=== PATIENT | male | born 1945 | race Caucasian/White ===

== ENCOUNTER 2021-12-20 09:00 | Outpatient (CLI) | payer OTHER, SELFPAY ==
[2021-12-20 09:10] LABS: Add Urine Microscopic? NO; Charge for UA Resulting for Rev
[2021-12-20 09:50] LABS: Bilirubin Urine Neg (Negative); Blood Urine Neg (Negative); Glucose Urine UA Norm (Normal); Ketones Urine Negative (Negative); Leukocyte Esterase Urine Negative (Negative); Nitrate Urine Negative (Negative); Protein Urine Neg (Negative); Specific Gravity, Urine 1.005 (1.005-1.030); Urine Appearance Clear (CLEAR); Urine Color Yellow (Yellow); Urobilinogen Urine Norm (Negative); pH Urine 7 (5-7)
[2021-12-20 10:14] LABS: Alanine Aminotransferase 14 U/L (0-41); Albumin Level 4.4 g/dL (3.5-5.2); Alkaline Phosphatase 76 U/L (40-130); Anion Gap 14.8 (5-19); Aspartate Amino Transferase 17 U/L (0-40); Blood Urea Nitrogen 26 mg/dL (8-23); Calcium 9.6 mg/dL (8.5-10.5); Carbon Dioxide 30 mmol/L (22-29); Chloride 98 mmol/L (98-107); Globulin 3.1 g/dL (1.3-4.6); Glucose 142 mg/dL (65-115); Osmolality Calculated 295 mOsm/kg (285-295); Potassium 3.8 mmol/L (3.5-5.1); Sodium 139 mmol/L (136-145); Total Bilirubin 0.7 mg/dL (0.15-1.2); Total Protein 7.5 g/dL (6.6-8.7)
== END 2021-12-20 09:01 | disposition home or self-care (01) ==
LOC: LAB 09:04
PROVIDERS: Visit Provider Chiropractor
DX: I10 Essential (primary) hypertension (principal)
CPT/HCPCS: 80053; 81003

== ENCOUNTER 2023-03-12 10:18 | Outpatient (RCR) | payer OTHER, SELFPAY | END 2023-04-05 23:59 | disposition home or self-care (01) | LOC: SPT 10:18 | PROVIDERS: PCP Family Medicine; Visit Provider Family Medicine | DX: M62.012 Separation of muscle (nontraumatic), left shoulder (principal) | CPT/HCPCS: 97110; 97161 ==

== ENCOUNTER 2023-04-06 06:00 | Outpatient (RCR) | payer OTHER, SELFPAY | END 2023-05-06 23:59 | disposition home or self-care (01) | LOC: SPT 06:00 | PROVIDERS: PCP Family Medicine; Visit Provider Family Medicine | DX: M62.012 Separation of muscle (nontraumatic), left shoulder (principal) | CPT/HCPCS: 97033; 97110 ==

== ENCOUNTER 2023-05-01 15:39 | Emergency (ER) | payer OTHER, SELFPAY ==
--- NOTE | 2023-05-01 15:42 | XR_ITS ---
WS: [id number] XR chest 1V portable [id number] REASON FOR EXAM: cp FINDINGS: The heart and the mediastinum are within normal limits. There is calcified granulomatous disease in both hemithoraces. No acute pulmonary parenchymal or pleural abnormality is identified. Old healed rib fractures on the left. Mild degenerative spondylosis in the mid and lower thoracic spi ne. IMPRESSION: No acute or subacute chest abnormality identified.
--- NOTE | 2023-05-01 15:43 | ECG_ITS ---
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 Measurements Intervals [place] Rate: 52 P: 75 MD: 127 QRS: 43 QRSD: 107 T: 67 QT: 460 QTc: 429 Interpretive Statements SINUS BRADYCARDIA No previous ECG available for comparison Electronically Signed On 05-01-2023 21:47:22 ENGINEERING SPECIALIST by Sanchez Franks M.D. [email or web address].[email or web address]/[id number] f
[2023-05-01 15:46] VITALS: BP 142/72; PULSE 52; RESP 16; TEMP 36.5; O2SAT 98
[2023-05-01 16:18] LABS: Basophils % 0.5 %; Eosinophils % 0.6 %; Hematocrit 42.2 % (37-53); Lymphocytes # 1.7 10^3/uL (0.8-4.8); Lymphocytes % 27.1 %; Mean Corpuscular HGB Conc 33.2 g/dL (30-55); Mean Corpuscular Hemoglobin 32.7 pg (27-33); Mean Corpuscular Volume 98.6 fl (82-101); Mean Platelet Volume 9.9 fL (7.4-10.4); Monocytes # 0.6 10^3/uL (0.2-0.9); Monocytes % 10.2 %; Neutrophils # 3.78 10^3/uL (1.8-7.7); Neutrophils % 61.4 %; Nucleated Red Blood Cells % 0 %; Platelet Count 221 10^3/cmm (157-399); Red Blood Count 4.28 10^6/uL (3.85-5.65); Red Cell Distribution Width 12.8 % (12.1-15.1); White Blood Count 6.16 10^3/uL (3.29-11.43)
[2023-05-01 16:21] LABS: Troponin(5th) Baseline 8 ng/L (0-15)
[2023-05-01 16:25] LABS: Alanine Aminotransferase 10 U/L (0-41); Albumin Level 4.5 g/dL (3.5-5.2); Alkaline Phosphatase 87 U/L (40-130); Anion Gap 17.2 (5-19); Aspartate Amino Transferase 18 U/L (0-40); Blood Urea Nitrogen 17 mg/dL (8-23); Carbon Dioxide 27 mmol/L (22-29); Chloride 103 mmol/L (98-107); Globulin 2.6 g/dL (1.3-4.6); Glucose 119 mg/dL (65-115); Osmolality Calculated 299 mOsm/kg (285-295); Potassium 4.2 mmol/L (3.5-5.1); Sodium 143 mmol/L (136-145); Total Bilirubin 0.5 mg/dL (0.15-1.2); Total Protein 7.1 g/dL (6.6-8.7)
--- NOTE | 2023-05-01 16:26 | W.ED.CHESTPA ---
HPI - Chest Pain General: Chief Complaint: Chest Pain Stated Complaint: [facility] sent, chest pain Time Seen by Provider: 05/01/23 16:26 History of Present Illness: 77-year-old male presents to the emerged part with complaints of left shoulder pain and left-sided chest pain. He states he intermittently has a muscle spasm and feels like his body is tensing up for no reason. He states he initially had an accidental fall on 01/28/2023 and has not been feeling very well since he fell. He states he was advised to come to the emergency department by the [facility] clinic. He states that at present he is not having active chest pain. He denies worsening shortness of breath. Review of Systems General: Reports: 10 or more systems reviewed and unremarkable except in HPI and below Card: Reports: chest pain Musc: Reports: extremity pain Physical Exam Narrative: EXAM NARRATIVE: Constitutional: the patient appears well nourished and of normal development. Vital signs as documented. No acute distress at present. Alert and oriented-to person, place, time and situation. Head, eyes, ears, nose, mouth, throat: Normocephalic, atraumatic. Pupils-equal, round, reactive to light. No scleral icterus. Normal-appearing external ears. Normal appearing nasal turbinates, no drainage. No obvious oral lesions, posterior oropharynx without erythema or exudates. Neck: Supple, trachea is midline, no lymphadenopathy, no jugular venous distension, thyromegaly, or carotid bruits. Carotid upstrokes are brisk bilaterally. Lungs: clear to auscultation to all lung jones. Symmetrical rise and fall of chest, no obvious signs of increased work of breathing at present. Cardiac: Regular rate and rhythm, positive S1, S2. No murmurs, rubs or gallops that I can appreciate Abdomen: Soft, non-tender to palpation, normal active bowel sounds to all quadrants. No palpable masses, no organomegaly and abdominal bruits. Extremities: 2+ pulses in the upper extremities that are equal bilaterally, 2+ pulses in the lower extremities that are equal bilaterally. Non-edematous. Moves all extremities well, sensation to all extremities are noted. Skin: Warm, dry, intact. Course Vital Signs: Vital signs: Vital Signs Temperature 97.7 F 05/01/23 18:04 Pulse Rate 57 L 05/01/23 18:04 Respiratory Rate 16 05/01/23 18:04 Blood Pressure 141/77 05/01/23 18:04 Pulse Oximetry 95 05/01/23 18:04 Oxygen Delivery Me thod Room Air 05/01/23 16:34 MDM - Chest Pain Medical Decision Making Physical exam completed and documented, I will obtain serial cardiac enzymes, serial twelve-lead EKGs, chest x-ray, CBC, CMP, urinalysis, BNP, PT/PTT/INR, and a chest x-ray. I provided cardiac dose aspirin if indicated and nitroglycerin administration if indicated. I have reviewed any pervious and pertinent medical records for assist in obtaining beneficial medical information to improved the care and treatment of the patient. Medical Records I reviewed the patient's medical records. Lab Data I reviewed the patient's lab results. 05/01/23 15:56 05/01/23 15:56 Laboratory Results WBC 6.16 10^3/uL (3.29-11.43) 05/01/23 15:56 RBC 4.28 10^6/uL (3.85-5.65) 05/01/23 15:56 Hgb 14.00 g/dL (11.27-16.99) 05/01/23 15:56 Hct 42.2 % (37-53) 05/01/23 15:56 MCV 98.6 fl (82-101) 05/01/23 15:56 MCH 32.7 pg (27-33) 05/01/23 15:56 MCHC 33.2 g/dL (30-55) 05/01/23 15:56 RDW 12.8 % (12.1-15.1) 05/01/23 15:56 Plt Count 221 10^3/cmm (157-399) 05/01/23 15:56 MPV 9.9 fL (7.4-10.4) 05/01/23 15:56 Neut % (Auto) 61.4 % 05/01/23 15:56 Lymph % (Auto) 27.1 % 05/01/23 15:56 [place] % (Auto) 10.2 % 05/01/23 15:56 Eos % (Auto) 0.6 % 05/01/23 15:56 Baso % (Auto) 0.5 % 05/01/23 15:56 Neut # (Auto) 3.78 10^3/uL (1.8-7.7) 05/01/23 15:56 Lymph # (Auto) 1.7 10^3/uL (0.8-4.8) 05/01/23 15:56 [place] # (Auto) 0.6 10^3/uL (0.2-0.9) 05/01/23 15:56 Eos # (Auto) 0.0 10^3/uL (0.0-0.8) 05/01/23 15:56 Baso # (Auto) 0.0 10^3/uL (0.0-0.1) 05/01/23 15:56 Nucleated RBC % (auto) 0 % 05/01/23 15:56 Nucleated RBCs # 0.0 /100WBC 05/01/23 15:56 PT 13.50 SECONDS (12.1-14.9) 05/01/23 15:56 INR 1.00 (0.8-1.2) 05/01/23 15:56 Sodium 143 mmol/L (136-145) 05/01/23 15:56 Potassium 4.2 mmol/L (3.5-5.1) 05/01/23 15:56 Chloride 103 mmol/L (98-107) 05/01/23 15:56 Carbon Dioxide 27 mmol/L (22-29) 05/01/23 15:56 Anion Gap 17.2 (5-19) 05/01/23 15:56 BUN 17 mg/dL (8-23) 05/01/23 15:56 Creatinine 1.3 mg/dL (0.7-1.2) H 05/01/23 15:56 GFR Calculation Not Reportable 05/01/23 15:56 Glucose 119 mg/dL (65-115) H 05/01/23 15:56 Calculated Osmolality 299 mOsm/kg (285-295) H 05/01/23 15:56 Calcium 10.0 mg/dL (8.5-10.5) 05/01/23 15:56 Total Bilirubin 0.5 mg/dL (0.15-1.2) 05/01/23 15:56 AST 18 U/L (0-40) 05/01/23 15:56 ALT 10 U/L (0-41) 05/01/23 15:56 Alkaline Phosphatase 87 U/L (40-130) 05/01/23 15:56 Troponin T Baseline 8 ng/L (0-15) 05/01/23 15:56 Troponin T 120 Minute 6.20 ng/L (0-15) 05/01/23 17:42 Delta Troponin T -1.80 ABS# (0-10) L 05/01/23 17:42 Total Protein 7.1 g/dL (6.6-8.7) 05/01/23 15:56 Albumin 4.5 g/dL (3.5-5.2) 05/01/23 15:56 Globulin 2.6 g/dL (1.3-4.6) 05/01/23 15:56 All radiology interpretation(s) finalized by discharge EKG Data EKG 1: Interpretation: Twelve-lead EKG obtained at 1543 and reviewed at 1545 demonstrates sinus bradycardia with a ventricular rate of 52 bpm, [place] interval 127 QRS 107, QT 460 QTc [address] elevation or depression at present to demonstrate acute ischemia or infarction. Discharge Plan Discharge Patient Disposition: Home Clinical Impression: Atypical chest pain Condition: Stable Prescriptions: New naproxen 500 mg tablet 500 mg PO Q12H PRN (Reason: pain) Qty: 20 0RF Discharge Orders: Discharge ED (Routine); Ordered 05/01/23 Ordered By: Juan Manuel Wharton Referrals: Aleena Azevedo MD [Primary Care Provider] - Discharge Diet: Advance as tolerated Discharge Activity: Resume usual activity Patient Instructions: Opioid Safety, Pain Management Coding Level of Care Code ED Manager Mall for Chg Telma
[2023-05-01 16:34] VITALS: BP 141/77; PULSE 60; RESP 18; O2SAT 96
[2023-05-01 17:05] VITALS: BP 141/77; PULSE 57; RESP 16; O2SAT 95
--- NOTE | 2023-05-01 17:42 | ECG_ITS ---
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 Measurements Intervals [place] Rate: 54 P: 62 AR: 120 QRS: 13 QRSD: 108 T: 57 QT: 471 QTc: 450 Interpretive Statements SINUS BRADYCARDIA Compared to ECG 05/01/2023 15:43:24 No significant changes Electronically Signed On 05-01-2023 21:47:35 CAR WHACKER by Sanchez Franks M.D. [email or web address] linda [email or web address] medical [email or web address]/[id number]
[2023-05-01 18:04] VITALS: BP 141/77; PULSE 57; RESP 16; TEMP 36.5; O2SAT 95
== END 2023-05-01 18:05 | disposition home or self-care (01) ==
PROVIDERS: Emergency Medicine; Emergency Provider Internal Medicine; PCP Family Medicine
DX: R07.89 Other chest pain (principal)
CPT/HCPCS: 36415; 71045; 80053; 84484; 85025; 85610; 93005; 99285

== ENCOUNTER 2023-05-07 06:00 | Outpatient (RCR) | payer OTHER, SELFPAY | END 2023-05-25 23:59 | disposition home or self-care (01) | LOC: SPT 06:00 | PROVIDERS: PCP Family Medicine; Visit Provider Family Medicine | DX: M62.012 Separation of muscle (nontraumatic), left shoulder (principal) | CPT/HCPCS: 97033; 97110 ==

== ENCOUNTER 2023-07-31 10:12 | Observation (INO) | payer OTHER, SELFPAY ==
[2023-07-31] VITALS (10 sets, daily range): BP systolic 90–130; BP diastolic 55–81; PULSE 48–90; RESP 14–16; TEMP 36.7–37.1; O2SAT 93–96; BMI 27.6
--- NOTE | 2023-07-31 10:17 | CT_ITS ---
WS: [id number] CT HEAD NONCONTRAST HISTORY: Dizziness TECHNIQUE: Contiguous axial imaging performed through the brain in 2.5 mm imaging. Bone and soft tiss ue windows. Sagittal and coronal reformats reviewed. All CT scans at [facility] use at least one of these dose optimization techniques: automated exposure control; mA and/or kV adjustment per pa tient size (includes targeted exams where dose is matched to clinical indication); or iterative recon struction. DLP: 1071.90 mGy.cm COMPARISON: None available. No acute intracranial hemorrhage, midline shift or mass effect. Mild atrophy and small vessel ischemic disease. Ventricles: Normal size with no hydrocephalus. No inferior displacement the cerebellar tonsils. Paranasal sinuses: Inspissated material within the LEFT maxillary sinus. Mastoid air cells: Well pneumatized. Calvarium and scalp: Skull is intact with no soft tissue edema or swelling. IMPRESSION: 1. No acute intracranial hemorrhage or edema. 2. Mild atrophy and mild small vessel disease. No prior infarct.
--- NOTE | 2023-07-31 10:17 | XRR_ITS ---
PROCEDURE INFORMATION: Exam: XR Chest Exam date and time: 07/31/2023 10:51 AM Age: 78 years old Clinical indication: Patient HX: PT arrives pov with chief complaint of dizziness since Thursday. PT states [facility] and told to come to er TECHNIQUE: Imaging protocol: Radiologic exam of the chest. Views: 1 view. COMPARISON: CR XR chest 1V portable [id number] 05/01/2023 4:14 PM FINDINGS: Lungs: There is a pleural-based opacity along the left lung convexity. Pleural spaces: Unremarkable. No pleural effusion. No pneumothorax. Heart/Mediastinum: Unremarkable. No cardiomegaly. Bones/joints: Unremarkable. XR/XR chest 1V [id number] IMPRESSION: Peripheral opacity along the left mid convexity. Recommend follow up with chest radiograph after presumptive therapy to document resolution.
--- NOTE | 2023-07-31 10:18 | ECG_ITS ---
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 Measurements Intervals [place] Rate: 50 P: 74 [place]: 149 QRS: 66 QRSD: 105 T: 64 QT: 470 QTc: 431 Interpretive Statements SINUS BRADYCARDIA Prominent R wave in lead V1-consider posterior wall MA/RVH MINIMAL ST DEPRESSION [0.025+ mV ST DEPRESSION] Compared to ECG 05/01/2023 17:44:23 ST (T wave) deviation now present Electronically Signed On 08-01-2023 19:25:39 CDT by Mary Vargas M.D. [email or web address] Company Limitedlima city [facility].[email or web address]/store/OM/[id number]
[2023-07-31 10:52] LABS: Hematocrit 34.9 % (37-53); Mean Corpuscular HGB Conc 34.4 g/dL (30-55); Mean Corpuscular Hemoglobin 32.5 pg (27-33); Mean Corpuscular Volume 94.6 fl (82-101); Mean Platelet Volume 10.4 fL (7.4-10.4); Platelet Count 174 10^3/cmm (157-399); Red Blood Count 3.69 10^6/uL (3.85-5.65); Red Cell Distribution Width 12.7 % (12.1-15.1); White Blood Count 15.66 10^3/uL (3.29-11.43)
[2023-07-31 11:12] LABS: Troponin(5th) Baseline 18 ng/L (0-15)
[2023-07-31 11:14] LABS: Alanine Aminotransferase 17 U/L (0-41); Albumin Level 3.4 g/dL (3.5-5.2); Alkaline Phosphatase 67 U/L (40-130); Anion Gap 16.1 (5-19); Aspartate Amino Transferase 48 U/L (0-40); Blood Urea Nitrogen 23 mg/dL (8-23); Calcium 8.6 mg/dL (8.5-10.5); Carbon Dioxide 27 mmol/L (22-29); Chloride 90 mmol/L (98-107); Globulin 2.8 g/dL (1.3-4.6); Glucose 133 mg/dL (65-115); Osmolality Calculated 276 mOsm/kg (285-295); Potassium 3.1 mmol/L (3.5-5.1); Sodium 130 mmol/L (136-145); Total Bilirubin 0.6 mg/dL (0.15-1.2); Total Protein 6.2 g/dL (6.6-8.7)
[2023-07-31 11:15] LABS: Lactic Sepsis W/Reflex 2.4 mmol/L (0.5-2.2)
--- NOTE | 2023-07-31 11:15 | ED_ITS ---
HPI - Dizziness 2 General: Chief Complaint: Dizziness Stated Complaint: dizzy, sent by [facility] Time Seen by Provider: 07/31/23 10:17 History of Present Illness: HPI Narrative: Patient presents with dizziness. He was here yesterday with this. He states to me that he was post to go home and drink several bottles of Gatorade but he got into it with his son who is supposed to bring in the Gatorade and he ended up with none and a felt worse today. [facility] He reports no dysuria. No abdominal pain. No chest pain. He says he did have quite a bit of coughing this morning and perhaps yesterday. No known fevers. Review of Systems 2 Narrative: Constitutional symptoms: Negative except as documented in HPI. Skin symptoms: Negative except as documented in HPI. Eye symptoms: Negative except as documented in HPI. ENMT symptoms: Negative except as documented in HPI. Respiratory symptoms: Negative except as documented in HPI. Cardiovascular symptoms: Negative except as documented in HPI. Gastrointestinal symptoms: Negative except as documented in HPI. Genitourinary symptoms: Negative except as documented in HPI. Musculoskeletal symptoms: Negative except as documented in HPI. Neurologic symptoms: Negative except as documented in HPI. Psychiatric symptoms: Negative except as documented in HPI. Endocrine symptoms: Negative except as documented in HPI. Physical Exam 2 Narrative: EXAM NARRATIVE: General: Alert, no acute distress. Skin: Warm, dry. Head: Normocephalic, atraumatic. Neck: Supple, trachea midline. Eye: Extraocular movements are intact. Ears, nose, mouth and throat: Tacky oral mucosa Cardiovascular: Regular, Normal peripheral perfusion. Respiratory: Lungs are clear to auscultation, respirations are non-labored, breath sounds are equal, Symmetrical chest wall expansion. Gastrointestinal: Soft, Nontender, Non distended, Normal bowel sounds. Musculoskeletal: Normal ROM, no deformity. Neurological: Alert and oriented, No focal neurological deficit observed. Psychiatric: Cooperative, appropriate mood & affect. Course 2 Vital Signs: Vital signs: Vital Signs Temperature 98.7 F 07/31/23 10:24 Pulse Rate 48 L 07/31/23 13:00 Respiratory Rate 16 07/31/23 13:00 Blood Pressure 123/55 07/31/23 13:00 Pulse Oximetry 95 07/31/23 13:00 Oxygen Delivery Me thod Room Air 07/31/23 13:00 MDM - Dizziness Medical Decision Making Medical decision making: Differential diagnosis including but not limited to and based on the above HPI, review of systems and physical exam: Patient presents with dizziness and hypotension. Would have concern for dehydration and renal failure. Infection. Sepsis. Pneumonia. UTI. Orders placed to evaluate differential diagnosis based on the above differential, HPI and physical exam Blood cultures were ordered at 1145 when patient was reported to be hypotensive. Lactate had been ordered. A second liter of fluid was ordered at that time initial was ordered at presentation Lab Review: Laboratory results were reviewed and interpreted by myself the emergency room physician. Patient has some leukocytosis with a white count of 15.6. BUN and creatinine are stable at 23 and 1.3. He does have a bit of an elevated lactate at 2.4. Chest x-ray: Patient has a dense consolidation of the left chest. CT without contrast was ordered to further evaluate. This was reviewed and interpreted by myself the ER physician. CT of the chest without contrast: There is a very dense left lateral infiltrate with bronchograms. This appears to be a pneumonia. This was reviewed and interpreted by myself emergency physician. I also reviewed the radiologist read. I reviewed the patient's medical record. Reexamination: Patient is not in any acute distress, however his blood pressure still soft. No increased work of breathing. No oxygen requirements. No altered mental status. No focal motor deficits. After about 2 L his blood pressure has improved and is in the 120s systolic Lab Data 07/31/23 10:28 07/31/23 10:28 Radiology Impressions Chest X-Ray 07/31/23 10:17 IMPRESSION: Peripheral opacity along the left mid convexity. Recommend follow up with chest radiograph after presumptive therapy to document resolution. Laboratory Results WBC 15.66 10^3/uL (3.29-11.43) H 07/31/23 10:28 RBC 3.69 10^6/uL (3.85-5.65) L 07/31/23 10:28 Hgb 12.00 g/dL (11.27-16.99) 07/31/23 10:28 Hct 34.9 % (37-53) L 07/31/23 10:28 MCV 94.6 fl (82-101) 07/31/23 10:28 MCH 32.5 pg (27-33) 07/31/23 10:28 MCHC 34.4 g/dL (30-55) 07/31/23 10:28 RDW 12.7 % (12.1-15.1) 07/31/23 10:28 Plt Count 174 10^3/cmm (157-399) 07/31/23 10:28 MPV 10.4 fL (7.4-10.4) 07/31/23 10:28 Total Counted 100 (0-100) 07/31/23 10:28 Atypical Lymphs % 0.0 % (0-5) 07/31/23 10:28 Absolute Neutrophils 13.5 10^3/cmm (1.4-6.5) H 07/31/23 10:28 Segmented Neutrophils 64 % 07/31/23 10:28 Abs Segm Neuts (Man) 10.0 10/cmm (1.6-7.1) H 07/31/23 10:28 Band Neutrophils 22.0 % 07/31/23 10:28 Abs Band Neuts (Man) 3.4 10^3/cmm (0.0-1.2) H 07/31/23 10:28 Absolute Lymphocytes 1.3 10^3/cmm (1.2-3.4) 07/31/23 10:28 Lymphocytes (Manual) 8 % 07/31/23 10:28 Monocytes (Manual) 6.0 % 07/31/23 10:28 Absolute Monocytes 0.9 10^3/cmm (0.1-0.6) H 07/31/23 10:28 Eosinophils (Manual) 0 % 07/31/23 10:28 Absolute Eosinophils 0.0 10^3/cmm (0.0-0.7) 07/31/23 10:28 Basophils (Manual) 0.0 % 07/31/23 10:28 Absolute Basophils 0.0 10^3/cmm (0.0-0.2) 07/31/23 10:28 Platelet Estimate Normal (Normal) 07/31/23 10:28 Sodium 130 mmol/L (136-145) L 07/31/23 10:28 Potassium 3.1 mmol/L (3.5-5.1) L 07/31/23 10:28 Chloride 90 mmol/L (98-107) L 07/31/23 10:28 Carbon Dioxide 27 mmol/L (22-29) 07/31/23 10:28 Anion Gap 16.1 (5-19) 07/31/23 10:28 BUN 23 mg/dL (8-23) 07/31/23 10:28 Creatinine 1.3 mg/dL (0.7-1.2) H 07/31/23 10:28 GFR Calculation Not Reportable 07/31/23 10:28 Glucose 133 mg/dL (65-115) H 07/31/23 10:28 Calculated Osmolality 276 mOsm/kg (285-295) L 07/31/23 10:28 Lactic Acid 2.4 mmol/L (0.5-2.2) H 07/31/23 10:28 Calcium 8.6 mg/dL (8.5-10.5) 07/31/23 10:28 Total Bilirubin 0.6 mg/dL (0.15-1.2) 07/31/23 10:28 AST 48 U/L (0-40) H 07/31/23 10:28 ALT 17 U/L (0-41) 07/31/23 10:28 Alkaline Phosphatase 67 U/L (40-130) 07/31/23 10:28 Troponin T Baseline 18 ng/L (0-15) H 07/31/23 10:28 Troponin T 120 Minute 13.61 ng/L (0-15) 07/31/23 12:35 Delta Troponin T -4.39 ABS# (0-10) L 07/31/23 12:35 Total Protein 6.2 g/dL (6.6-8.7) L 07/31/23 10:28 Albumin 3.4 g/dL (3.5-5.2) L 07/31/23 10:28 Globulin 2.8 g/dL (1.3-4.6) 07/31/23 10:28 Urine Color Yellow (Yellow) 07/31/23 11:43 Urine Appearance Clear (CLEAR) 07/31/23 11:43 Urine pH 6 (5-7) 07/31/23 11:43 Ur Specific [place] 1.015 (1.005-1.030) 07/31/23 11:43 Urine Protein 1+ (Negative) H 07/31/23 11:43 Urine Glucose (UA) Norm (Normal) 07/31/23 11:43 Urine Ketones Negative (Negative) 07/31/23 11:43 Urine Blood 3+ (Negative) H 07/31/23 11:43 Urine Nitrate Negative (Negative) 07/31/23 11:43 Urine Bilirubin Neg (Negative) 07/31/23 11:43 Urine Urobilinogen 1 mg/dL (Negative) H 07/31/23 11:43 Ur Leukocyte Esterase Negative (Negative) 07/31/23 11:43 Urine RBC 0-4 /hpf (0-2) H 07/31/23 11:43 Urine WBC 0-4 /hpf (0-5) H 07/31/23 11:43 Ur Squamous Epith Cells 0-4 /hpf (0-5) H 07/31/23 11:43 Amorphous Sediment Not Reportable 07/31/23 11:43 Urine Bacteria None /hpf (NONE) 07/31/23 11:43 All radiology interpretation(s) finalized by discharge Other Data Assessment and plan: Pneumonia Sepsis -2 L normal saline bolus. Fluid volumes based on ideal body weight. -Rocephin and azithromycin for community-acquired pneumonia. -Sepsis quality measures. -Lactic acid with a reflex was ordered. -Blood cultures were ordered. Procalcitonin ordered. -I discussed the patient with the hospitalist on-call who is admitting the patient. - Discussed findings and plan with patient. Answered any questions. - All laboratory values were reviewed and interpreted personally by myself, the ER physician - All imaging was reviewed and interpreted personally by myself, the ER physician. - Evaluation and treatment of this problem were appropriate in the emergency setting Discharge Plan Discharge Patient Disposition: Admitted As Inpatient Clinical Impression: Community acquired bacterial pneumonia, Sepsis Condition: Stable Coding Level of Care Code ED Chemical Pathologist for Murray Hollis
[2023-07-31 11:29] LABS: Slide Review Slide Review Perform
[2023-07-31 11:32] LABS: Absolute Neutrophil 13.5 10^3/cmm (1.4-6.5); Band Neutrophils Absolute 3.4 10^3/cmm (0.0-1.2); Eosinophils 0 %; Lymphocytes 8 %; Lymphocytes Absolute 1.3 10^3/cmm (1.2-3.4); Monocytes Absolute 0.9 10^3/cmm (0.1-0.6); Platelet Estimate Normal (Normal); Segmented Neutrophils 64 %; Total Cells Counted 100 (0-100)
--- NOTE | 2023-07-31 11:33 | PC.PHAR ---
[facility] IS [facility] 07/31/23. PT STATES IS DIABETIC AND TAKES ABOUT 8 MEDICATIONS.
--- NOTE | 2023-07-31 11:45 | CT_ITS ---
WS: [id number] CT chest wo con [id number] HISTORY: Abnormal chest x-ray TECHNIQUE: Axial imaging performed through the thorax. Coronal and sagittal reformats are submitted. All CT scans at [facility] use at least one of these dose optimization techniques: automated exposure control; mA and/or kV adjustment per patient size (includes targeted exams where dose is mat ched to clinical indication); or iterative reconstruction. CONTRAST: None DLP: 472.72 mGy.cm COMPARISON: Chest radiograph 05/01/2023 and 07/31/2023 Lungs and central airway: Large wedge-shaped area of consolidation with air bronchograms in the LEFT upper lobe. Consolidation abuts the fissure. Airspace disease extends back to the LEFT hilum. A few b enign calcified granulomata. Pleura: Normal. No pleural effusion. Heart and pericardium: Normal size heart with no pericardial effusion. Mediastinum and josh: Small mediastinal and hilar lymph nodes. Hilar regions are difficult to evaluat e accurately without IV contrast. There are benign calcified hilar lymph nodes. Vessels: Normal size aortic and pulmonary artery. No coronary artery calcifications. Chest wall and lower neck: No soft tissue masses. Upper abdomen: Small hiatal hernia. Negative liver. Splenic granulomata. No adrenal mass. Osseous structures: Several contiguous rib fractures in the LEFT lateral thorax are ununited. IMPRESSION: 1. Large dense consolidation with air bronchograms in the LEFT upper lobe. Most consistent with pneu monia. Recommend follow-up to resolution. 2. Prior granulomatous disease. 3. Small hiatal hernia.
[2023-07-31] MEDS: sodium chloride 0.9% 1,000 ML 999 ML IV ×2 (12:07→13:06)
[2023-07-31 12:17] LABS: Add Urine Culture? No; Bilirubin Urine Neg (Negative); Blood Urine 3+ (Negative); Glucose Urine UA Norm (Normal); Ketones Urine Negative (Negative); Leukocyte Esterase Urine Negative (Negative); Nitrate Urine Negative (Negative); Protein Urine 1+ (Negative); RBC Urine 0-4 /hpf (0-2); Specific Gravity, Urine 1.015 (1.005-1.030); Squamous Epithelial Cell Urine 0-4 /hpf (0-5); Urine Appearance Clear (CLEAR); Urine Color Yellow (Yellow); Urobilinogen Urine 1 mg/dL (Negative); WBC Urine 0-4 /hpf (0-5); pH Urine 6 (5-7)
[2023-07-31 12:43] LABS: Reflex Lactate Order REFLEX LACTIC ORDERD
[2023-07-31] MEDS: cefTRIAXone 1,000 MG in sodium chloride 0.9% (plus) 50 ML 100 MG IV (13:07)
[2023-07-31 13:23] LABS: Troponin 5 2HR 13.61 ng/L (0-15); Troponin 5 2HR Delta -4.39 ABS# (0-10)
[2023-07-31] MEDS: azithromycin 500 MG in sodium chloride 0.9% 250 ML 250 MG IV (13:28)
--- NOTE | 2023-07-31 13:40 | ECG_ITS ---
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 Measurements Intervals [place] Rate: 58 P: 75 [place]: 135 QRS: 65 QRSD: 111 T: 72 QT: 525 QTc: 520 Interpretive Statements SINUS BRADYCARDIA MODERATE INTRAVENTRICULAR CONDUCTION DELAY [110+ ms QRS DURATION] Possible right ventricular hypertrophy PROLONGED QT INTERVAL CRITICAL TEST RESULT Compared to ECG 07/31/2023 11:17:13 Intraventricular conduction delay now present Prolonged QT interval now present ST (T wave) deviation no longer present Electronically Signed On 08-01-2023 19:55:39 CDT by Mary Vargas M.D. [email or web address] TelevisionSOMA Barcelonahenry county hospital.[email or web address]/store/[id number]
[2023-07-31 13:50] LABS: Lactic Acid level (Lactate) 1.9 mmol/L (0.5-2.2)
--- NOTE | 2023-07-31 16:17 | P.HP_ITS ---
Providers/Chief Complaint 2 Admitting Physician: Omar Samuels Primary Care Provider: Aleena Azevedo MD Chief Complaint: dizzy, sent by in History of Present Illness Pleasant 72-year-old gentleman with CAD, dyspnea, has been recently started on antibiotics due to [facility] he is hypotensive, blood pressure 90/58. With leukocytosis 15.66 with predominant neutrophilia, 3.4 bands. Heart rate 48-60. Chest x-ray with peripheral opacity along the left mid convexity, chest CT with large dense consolidation with air bronchograms in left upper lobe consistent with pneumonia. Recommended follow- up to resolution. Prior granulomatous disease. Small hiatal hernia. Review of Systems 2 Const: Denies: fever(s), chills, body aches or malaise ENMT: Denies: throat pain Card: Denies: chest pain, edema, pre-syncope or dyspnea on exertion Resp: Reports: dyspnea and productive cough; Denies: hemoptysis GI: Reports: diarrhea; Denies: abdominal pain, nausea, vomiting, constipation, hematochezia or melena : Denies: flank pain, difficulty urinating, urinary frequency or hematuria Musc: Denies: back pain, joint swelling or joint redness Skin/Breast: Denies: rash or new lesions Neuro: Denies: headache(s) or confusion Medications/Allergies Home Medications Medication Instructions Recorded Confirmed Last Taken Type albuterol sulfate 90 mcg/actuation 2 puff inhalation QID PRN COPD 07/31/23 07/31/23 Unknown History aerosol inhaler aspirin 81 mg tablet,delayed 81 mg PO DAILY 07/31/23 07/31/23 07/29/23 History release atenolol 100 mg-chlorthalidone 25 1 tab PO DAILY 07/31/23 07/31/23 07/29/23 History mg tablet fluticasone 100 mcg-salmeterol 50 1 inh inhalation BID 07/31/23 07/31/23 07/29/23 History mcg/dose blistr powdr for inhalation (Advair Diskus) lisinopril 20 mg tablet 10 mg PO DAILY 07/31/23 07/31/23 07/29/23 History meloxicam 15 mg tablet 15 mg PO DAILY 07/31/23 07/31/23 07/29/23 History metformin 1,000 mg tablet 1,000 mg PO BIDWMEAL 07/31/23 07/31/23 07/29/23 History potassium chloride 20 mEq 20 meq PO TID 07/31/23 07/31/23 07/29/23 History tablet,extended release simvastatin 80 mg tablet 40 mg PO QPM 07/31/23 07/31/23 07/29/23 History tamsulosin 0.4 mg capsule 0.4 mg PO QPM 07/31/23 07/31/23 07/29/23 History Allergies Allergy/AdvReac Type Severity Reaction Status Date / Time Horse/Equine Containing Allergy ALGY-Anaphy Verified 05/01/23 15:50 Products laxis Sulfa (Sulfonamide Allergy Unknown Verified 05/01/23 15:50 Antibiotics) PFSH Acute 2 PFSH: Medical History HTN (hypertension) DM type 2 (diabetes mellitus, type 2) Social History Smoking and tobacco/nicotine status: former use of tobacco/nicotine Alcohol intake: never Lives independently: Yes Household members: spouse Marital status: Vitals/I&O/Wt Last Vital Signs Temp 98.7 F 07/31/23 14:19 Pulse 51 L 07/31/23 14:19 Resp 14 07/31/23 14:19 BP 120/61 07/31/23 14:19 Pulse Ox 96 07/31/23 14:19 O2 Del Method Room Air 07/31/23 14:26 07/31/23 07/31/23 07/31/23 06:59 14:59 22:59 Intake Total 2300 / 2300 Balance 2300 / 2300 Weight last 48 hrs Weight 77.655 kg Weight 77.111 kg Physical Exam 2 Const: COMMON NORMALS: patient oriented x3 and alert GENERAL APPEARANCE: c ooperative ORIENTATION/CONSCIOUSNESS: Yes awake HENMT: COMMON NORMALS: oropharynx normal Neck/C-Spine: COMMON NORMALS: no JVD Resp: COMMON NORMALS: normal respiratory effort and clear to auscultation bilaterally AUSCULTATION: clear to auscultation bilaterally Cardio: COMMON NORMALS: no JVD, regular rhythm, S1 normal heart sound present, S2 normal heart sound present and No murmurs present (Cardio) RHYTHM: regular rhythm HEART SOUNDS: S1 normal heart sound present and S2 normal heart sound present GI: COMMON NORMALS: Normal to inspection, nondistended, normoactive bowel sounds present, Soft to palpation and non-tender PALPATION: Yes Soft to palpation Extremity: COMMON NORMALS: no joint enlargement and no pedal edema Neuro: COMMON NORMALS: patient oriented x3 and moves all extremities S ENSORIUM/ORIENTATION: Yes alert Skin: COMMON NORMALS: no rashes or lesions noted GENERAL SKIN EXAM: no rashes or lesions noted Data 07/31/23 10:28 07/31/23 10:28 Micro: Microbiology 07/31/23 12:35 Blood Culture - Preliminary Blood SPECIMEN COLLECTED 07/31/23 10:28 Blood Culture - Preliminary Blood SPECIMEN COLLECTED A&P Assessment and plan (1) Community acquired bacterial pneumonia: With cough dyspnea, left upper lobe consolidation. Leukocytosis 15.66, abdominal neutrophilic, with bandemia. Reviewed vitals, CBC, CMP, noted CKD, creatinine 1.3. Reviewed troponin, EKG, UA, chest x-ray, CT chest, head CT. Reviewed ER note, discussed with ER provider. Curb 65 score of 2, Additionally pneumonia despite starting antibiotic recently by his PCP due to fluid in his ears. Will start additional treatment in the hospital with ceftriaxone, azithromycin, collect sputum cultures, urine bacterial antigens. Repeat blood counts, chemistry. Will follow vitals and monitor oxygenation. Not requiring oxygen at current time, but was hypotensive on presentation, blood pressure 90/58. Lactic acid 2.4. At risk of progressive deterioration, sepsis, septic shock. (2) Hypotension: Received fluid boluses, hold antihypertensives. Monitor blood pressures. He reports has been urinating quite a lot, getting thirsty often, will check A1c. He takes metformin at home but states has not been monitoring his glucose. Alternatively considered possibly hypotension due to his antihypertensives, but he states has not been taking them over the last week as he has not been feeling very well. Is noted to have MEHRDAD versus CKD, creatinine 1.3. Possibly prerenal secondary to hypotension. Risk of endorgan injury. Monitor blood pressure. Bedrest for now. (3) DM type 2 (diabetes mellitus, type 2): On metformin at home. Will request Accu-Cheks, sliding scale insulin. Check A1c. Plan BPH: Continue Flomax Environment allergies Attestations 2 Medical Necessity Statement*: Place in observation for additional assessment of management of any acquired pneumonia despite being on antibiotic, hypotension with MEHRDAD versus CKD. and High MDM includes amount and/or complexity of data reviewed/ordered [ previous or external records, resulted lab(s)/test(s), ordered lab(s)/test(s) and other healthcare professional discussion] as documented Diagnoses Community acquired bacterial pneumonia J15.9 Hypotension I95.9 DM type 2 (diabetes mellitus, type 2) E11.9
[2023-07-31 16:46] LABS: Troponin 5 6HR 13.21 ng/L (0-15)
[2023-07-31 16:48] LABS: Troponin 5 6HR Delta -4.79 ng/L (0-12)
[2023-07-31 17:03] LABS: Estmated Average Glucose 126
[2023-07-31 17:20] LABS: Glucose Point of Care 106 mg/dL (70-110)
[2023-07-31] MEDS: tamsulosin 0.4 mg Capsule 0.400000000000000022 MG PO (17:23)
[2023-07-31] MEDS: heparin 5,000 unit/mL INJ 1 mL 5000 UNIT SUBCUT (17:23)
[2023-07-31] MEDS: atorvastatin 40 mg Tablet PO (17:23)
[2023-07-31 20:10] LABS: Glucose Point of Care 120 mg/dL (70-110)
[2023-07-31] MEDS: budesonide 0.5 mg/2 mL Neb 0.25 MG INHALATION (20:22)
[2023-08-01] VITALS (7 sets, daily range): BP systolic 116–138; BP diastolic 67–75; PULSE 46–59; RESP 15–16; TEMP 36.6–37.6; O2SAT 92–97
[2023-08-01] MEDS: heparin 5,000 unit/mL INJ 1 mL 5000 UNIT SUBCUT (05:15)
[2023-08-01] MEDS: acetaminophen 325 mg Tablet 650 MG PO (05:15)
[2023-08-01 06:28] LABS: Glucose Point of Care 117 mg/dL (70-110)
[2023-08-01 06:46] LABS: Basophils % 0.1 %; Hematocrit 29.5 % (37-53); Lymphocytes # 0.7 10^3/uL (0.8-4.8); Mean Corpuscular HGB Conc 34.6 g/dL (30-55); Mean Corpuscular Hemoglobin 32.4 pg (27-33); Mean Corpuscular Volume 93.7 fl (82-101); Mean Platelet Volume 10.9 fL (7.4-10.4); Monocytes # 0.9 10^3/uL (0.2-0.9); Neutrophils # 8.12 10^3/uL (1.8-7.7); Nucleated Red Blood Cells % 0 %; Platelet Count 176 10^3/cmm (157-399); Red Blood Count 3.15 10^6/uL (3.85-5.65); Red Cell Distribution Width 12.9 % (12.1-15.1); White Blood Count 9.79 10^3/uL (3.29-11.43)
[2023-08-01 07:06] LABS: Alanine Aminotransferase 69 U/L (0-41); Albumin Level 2.6 g/dL (3.5-5.2); Alkaline Phosphatase 61 U/L (40-130); Aspartate Amino Transferase 165 U/L (0-40); Blood Urea Nitrogen 21 mg/dL (8-23); Calcium 7.8 mg/dL (8.5-10.5); Carbon Dioxide 24 mmol/L (22-29); Chloride 99 mmol/L (98-107); Creatinine Clr Calc Pharmacy 60.1962; Globulin 2.9 g/dL (1.3-4.6); Glucose 114 mg/dL (65-115); Osmolality Calculated 282 mOsm/kg (285-295); Sodium 134 mmol/L (136-145); Total Bilirubin 0.3 mg/dL (0.15-1.2); Total Protein 5.5 g/dL (6.6-8.7)
[2023-08-01] MEDS: budesonide 0.5 mg/2 mL Neb 0.25 MG INHALATION (08:22)
[2023-08-01] MEDS: cefTRIAXone 1,000 MG in sodium chloride 0.9% (plus) 50 ML 100 MG IV (09:36)
[2023-08-01] MEDS: aspirin 81 mg EC Tablet PO (09:36)
[2023-08-01 12:14] LABS: Glucose Point of Care 150 mg/dL (70-110)
[2023-08-01] MEDS: insulin lispro 100 unit/1 mL SUBCUT (12:33)
[2023-08-01] MEDS: azithromycin 500 MG in sodium chloride 0.9% 250 ML 250 MG IV (12:34)
--- NOTE | 2023-08-01 15:00 | P.DS_ITS ---
Discharge Providers Date of Admission: 07/31/23 13:57 Date of Discharge: August 01, 2023 Attending Provider at Admission: Omar Samuels Attending Provider at Discharge: Omar Samuels Primary Care Provider: Aleena Azevedo MD Diagnoses at Discharge Discharge Diagnosis (1) Community acquired bacterial pneumonia: Status: Acute (2) Hypotension: Status: Acute (3) DM type 2 (diabetes mellitus, type 2): Status: Acute Reason for Visit Reason for Visit: dizzy, [facility] Brief History: Pleasant 72-year-old gentleman with CAD, dyspnea, has been recently started on antibiotics due to [facility] In ER he is hypotensive, blood pressure 90/58. With leukocytosis 15.66 with predominant neutrophilia, 3.4 bands. Heart rate 48-60. Chest x-ray with peripheral opacity along the left mid convexity, chest CT with large dense consolidation with air bronchograms in left upper lobe consistent with pneumonia. Recommended follow- up to resolution. Prior granulomatous disease. Small hiatal hernia. Hospital Course Hospital Course He received treatment for pneumonia with ceftriaxone and azithromycin. His oxygenation remained good. He is saturating 95% on room air. His leukocytosis resolved. He will need follow-up for resolution of opacification as per radiol ogy recommendation based on the CT findings. Please obtain follow-up imaging after recovery. He additionally has complaint of some urinary urgency. He does have history of BPH, takes Flomax, denies any retention/obstructive symptoms. He does report that sometimes he gets urge and urinates almost immediately. UA was not suggestive of any UTI. Bladder scan did not reveal urinary retention, suspected overactive bladder. As per discussion with him started mirabegron. Consider referral to urology for additional assessment. As he was having some soft stools samples requested for C. difficile, he states that the sample was collected, although looking at the record I do not see that one was gathered. He was only having 1 soft stool daily, C. difficile less likely. Please follow-up for resolution of diarrhea. While in hospital additionally incidentally found to have transaminitis, AST 165, ALT 69. Physical Exam Const: COMMON NORMALS: patient oriented x3 and alert GENERAL APPEARANCE: cooperative ORIENTATION/CONSCIOUSNESS: Yes awake HENMT: COMMON NORMALS: oropharynx normal Neck/C-Spine: COMMON NORMALS: no JVD Resp: COMMON NORMALS: normal respiratory effort and clear to auscultation bilaterally AUSCULTATION: clear to auscultation bilaterally Cardio: COMMON NORMALS: no JVD, regular rhythm, S1 normal heart sound present, S2 normal heart sound present and No murmurs present (Cardio) RHYTHM: regular rhythm HEART SOUNDS: S1 normal heart sound present and S2 normal heart sound present GI: COMMON NORMALS: Normal to inspection, nondistended, normoactive bowel sounds present, Soft to palpation and non-tender PALPATION: Yes Soft to palpation Extremity: COMMON NORMALS: no joint enlargement and no pedal edema Neuro: COMMON NORMALS: patient oriented x3 and moves all extremities SENSORIUM/ORIENTATION: Yes alert Skin: COMMON NORMALS: no rashes or lesions noted GENERAL SKIN EXAM: no rashes or lesions noted Discharge Data Studies Completed and Pending Completed Studies During Hospitalization Category Date Time Status CT chest wo con [id number] Stat Cat Scan 07/31/23 11:[address] head wo con* [id number] Stat Cat Scan 07/31/23 10:17 Completed XR chest 1V [id number] Stat Exams 07/31/23 10:17 Completed Pending at discharge Category Date Time Status Blood Culture Stat Lab 07/31/23 12:35 Results C.Diff PCR (Lab) Routine Lab 07/31/23 18:50 Ordered Complete Blood Count w/Auto AM LABS Lab 08/02/23 04:00 Ordered Complete Blood Count w/Auto AM LABS Lab 08/03/23 04:00 Ordered Sputum Culture and Gram Stain Routine Lab 07/31/23 16:16 Uncollected Radiology Impressions Chest X-Ray 07/31/23 10:17 IMPRESSION: Peripheral opacity along the left mid convexity. Recommend follow up with chest radiograph after presumptive therapy to document resolution. Laboratory Results WBC 9.79 10^3/uL (3.29-11.43) 08/01/23 06:08 RBC 3.15 10^6/uL (3.85-5.65) L 08/01/23 06:08 Hgb 10.20 g/dL (11.27-16.99) L 08/01/23 06:08 Hct 29.5 % (37-53) L 08/01/23 06:08 MCV 93.7 fl (82-101) 08/01/23 06:08 MCH 32.4 pg (27-33) 08/01/23 06:08 MCHC 34.6 g/dL (30-55) 08/01/23 06:08 RDW 12.9 % (12.1-15.1) 08/01/23 06:08 Plt Count 176 10^3/cmm (157-399) 08/01/23 06:08 MPV 10.9 fL (7.4-10.4) H 08/01/23 06:08 Neut % (Auto) 83.0 % 08/01/23 06:08 Lymph % (Auto) 7.0 % 08/01/23 06:08 [place] % (Auto) 9.0 % 08/01/23 06:08 Eos % (Auto) 0.0 % 08/01/23 06:08 Baso % (Auto) 0.1 % 08/01/23 06:08 Neut # (Auto) 8.12 10^3/uL (1.8-7.7) H 08/01/23 06:08 Lymph # (Auto) 0.7 10^3/uL (0.8-4.8) L 08/01/23 06:08 [place] # (Auto) 0.9 10^3/uL (0.2-0.9) 08/01/23 06:08 Eos # (Auto) 0.0 10^3/uL (0.0-0.8) 08/01/23 06:08 Baso # (Auto) 0.0 10^3/uL (0.0-0.1) 08/01/23 06:08 Nucleated RBC % (auto) 0 % 08/01/23 06:08 Total Counted 100 (0-100) 07/31/23 10:28 Atypical Lymphs % 0.0 % (0-5) 07/31/23 10:28 Absolute Neutrophils 13.5 10^3/cmm (1.4-6.5) H 07/31/23 10:28 Segmented Neutrophils 64 % 07/31/23 10:28 Abs Segm Neuts (Man) 10.0 10/cmm (1.6-7.1) H 07/31/23 10:28 Band Neutrophils 22.0 % 07/31/23 10:28 Abs Band Neuts (Man) 3.4 10^3/cmm (0.0-1.2) H 07/31/23 10:28 Absolute Lymphocytes 1.3 10^3/cmm (1.2-3.4) 07/31/23 10:28 Lymphocytes (Manual) 8 % 07/31/23 10:28 Monocytes (Manual) 6.0 % 07/31/23 10:28 Absolute Monocytes 0.9 10^3/cmm (0.1-0.6) H 07/31/23 10:28 Eosinophils (Manual) 0 % 07/31/23 10:28 Absolute Eosinophils 0.0 10^3/cmm (0.0-0.7) 07/31/23 10: Basophils (Manual) 0.0 % 07/31/23 10: Absolute Basophils 0.0 10^3/cmm (0.0-0.2) 07/31/23 10: Nucleated RBCs # 0.0 /100WBC 08/01/23 06:08 Platelet Estimate Normal (Normal) 07/31/23 10:28 Sodium 134 mmol/L (136-145) L 08/01/23 06:08 Potassium 3.0 mmol/L (3.5-5.1) L 08/01/23 06:08 Chloride 99 mmol/L (98-107) 08/01/23 06:08 Carbon Dioxide 24 mmol/L (22-29) 08/01/23 06:08 Anion Gap 14.0 (5-19) 08/01/23 06:08 BUN 21 mg/dL (8-23) 08/01/23 06:08 Creatinine 1.0 mg/dL (0.7-1.2) 08/01/23 06:08 GFR Calculation Not Reportable 08/01/23 06:08 Glucose 114 mg/dL (65-115) 08/01/23 06:08 POC Glucose 150 mg/dL (70-110) H 08/01/23 11:46 Estimat Average Glucose 126 07/31/23 10:28 Hemoglobin A1c 6.0 % (4.0-6.0) 07/31/23 10:28 Calculated Osmolality 282 mOsm/kg (285-295) L 08/01/23 06:08 Lactic Acid 2.4 mmol/L (0.5-2.2) H 07/31/23 10:28 Lactic Acid (Sepsis) 1.9 mmol/L (0.5-2.2) 07/31/23 13:21 Calcium 7.8 mg/dL (8.5-10.5) L 08/01/23 06:08 Magnesium 2.0 mg/dL (1.7-2.3) 08/01/23 06:08 Total Bilirubin 0.3 mg/dL (0.15-1.2) 08/01/23 06:08 AST 165 U/L (0-40) H 08/01/23 06:08 ALT 69 U/L (0-41) H 08/01/23 06:08 Alkaline Phosphatase 61 U/L (40-130) 08/01/23 06:08 Troponin T Baseline 18 ng/L (0-15) H 07/31/23 10:28 Troponin T 120 Minute 13.61 ng/L (0-15) 07/31/23 12:35 Delta Troponin T -4.39 ABS# (0-10) L 07/31/23 12:35 Troponin T Hi Sens 6Hr 13.21 ng/L (0-15) 07/31/23 16:21 Troponin T Hi Sens 6Hr Delta -4.79 ng/L (0-12) L 07/31/23 16:21 Total Protein 5.5 g/dL (6.6-8.7) L 08/01/23 06:08 Albumin 2.6 g/dL (3.5-5.2) L 08/01/23 06:08 Globulin 2.9 g/dL (1.3-4.6) 08/01/23 06:08 Urine Color Yellow (Yellow) 07/31/23 11:43 Urine Appearance Clear (CLEAR) 07/31/23 11:43 Urine pH 6 (5-7) 07/31/23 11:43 Ur Specific [place] 1.015 (1.005-1.030) 07/31/23 11:43 Urine Protein 1+ (Negative) H 07/31/23 11:43 Urine Glucose (UA) Norm (Normal) 07/31/23 11:43 Urine Ketones Negative (Negative) 07/31/23 11:43 Urine Blood 3+ (Negative) H 07/31/23 11:43 Urine Nitrate Negative (Negative) 07/31/23 11:43 Urine Bilirubin Neg (Negative) 07/31/23 11:43 Urine Urobilinogen 1 mg/dL (Negative) H 07/31/23 11:43 Ur Leukocyte Esterase Negative (Negative) 07/31/23 11:43 Urine RBC 0-4 /hpf (0-2) H 07/31/23 11:43 Urine WBC 0-4 /hpf (0-5) H 07/31/23 11:43 Ur Squamous Epith Cells 0-4 /hpf (0-5) H 07/31/23 11:43 Amorphous Sediment Not Reportable 07/31/23 11:43 Urine Bacteria None /hpf (NONE) 07/31/23 11:43 Vitals Last Vital Signs Temp 97.9 F 08/01/23 11:45 Pulse 59 L 08/01/23 11:45 Resp 15 08/01/23 11:45 BP 116/67 08/01/23 11:45 Pulse Ox 95 08/01/23 11:45 O2 Del Method Room Air 08/01/23 11:45 Discharge Plan Discharge Patient Disposition: Home Condition: Stable Prescriptions: New mirabegron 25 mg tablet extended release 24 hr 25 mg PO DAILY Qty: 30 0RF cefdinir 300 mg capsule 300 mg PO BID 5 Days Qty: 10 0RF azithromycin 250 mg tablet 250 mg PO DAILY 5 Days Qty: 5 0RF Continued simvastatin 80 mg Tablet 40 mg PO QPM aspirin 81 mg Tablet,Delayed Release (Dr/Ec) 81 mg PO DAILY tamsulosin 0.4 mg Capsule 0.4 mg PO QPM metformin 1,000 mg Tablet 1,000 mg PO BIDWMEAL Advair Diskus 100-50 mcg/dose Blister With Device 1 inh INHALATION BID albuterol sulfate 90 mcg/actuation Hfa Aerosol Inhaler 2 puff INHALATION QID PRN (Reason: COPD) potassium chloride 20 mEq Tablet Extended Release 20 meq PO TID Discontinued atenolol-chlorthalidone 100-25 mg Tablet 1 tab PO DAILY meloxicam 15 mg Tablet 15 mg PO DAILY lisinopril 20 mg Tablet 10 mg PO DAILY Discharge Orders: Discharge Order (Routine); Ordered 08/01/23 Ordered By: Omar Samuels Referrals: Aleena Azevedo MD [Primary Care Provider] - 4-7 days Patient Instructions: Azithromycin (By mouth), Cefdinir (By mouth), Mirabegron (By mouth), Viral Pneumonia (DC), Opioid Safety Activity Restrictions/Additional Instructions: Complete antibiotic course for pneumonia, follow-up with your primary doctor for resolution, have them reassess imaging of the chest to make sure opacity resolves or follow-up additional imaging if it does not. Stop your blood pressure medications for now as your blood pressure was low and heart rate was low as well on presentation. Monitor your blood pressure twice daily, safe values to bring to your appointment. Discuss with your primary doctor regarding component of urge incontinence on top of BPH. Continue tamsulosin, for urge component you are started also on mirabegron. This medication could increase your blood pressure, heart rate, so please continue to monitor these. It could lead to urinary tension severity over experience difficulty urinating or emptying her bladder, having abdominal fullness, or other symptoms, please stop the medication, seek medical attention. Discussed referral to urology with your primary provider at the [facility] for additional assessment of BPH and urge incontinence symptoms. You are also noted to have mild elevation of liver enzymes AST and ALT, 165 and 69 respectively, please have your primary provider follow-up your liver parameters. Avoid meloxicam as it can cause injury to your liver, kidneys, raise your blood pressure, increased risk of heart attack, stroke. Return to the hospital in case of any worsening or new concerning symptoms heart attacks Discharge Attestations Time Spent in Discharge Care*: greater than 30 min Quality Metrics Clinical Quality Measures [ No reported AMI, CVA or VTE this stay] Coding Level of Care Code 17912 Total time (in minutes) for Discharge: 50 Diagnoses Community acquired bacterial pneumonia J15.9 Hypotension I95.9 DM type 2 (diabetes mellitus, type 2) E11.9
== END 2023-08-01 16:09 | disposition home or self-care (01) ==
LOC: ER 13:28 → MEDSURG 21:56
PROVIDERS: Admitting Provider Internal Medicine; Emergency Provider Emergency Medicine; PCP Family Medicine; Visit Provider Internal Medicine
DX: J15.9 Unspecified bacterial pneumonia (principal); I95.9 Hypotension, unspecified; E11.9 Type 2 diabetes mellitus without complications; I25.10 Atherosclerotic heart disease of native coronary artery without angina pectoris; N40.1 Benign prostatic hyperplasia with lower urinary tract symptoms; R39.15 Urgency of urination; Z79.82 Long term (current) use of aspirin; I10 Essential (primary) hypertension; J30.2 Other seasonal allergic rhinitis
CPT/HCPCS: 36415; 36416; 70450; 71045; 71250; 80053; 81001; 82962; 83036; 83605; 83735; 84484; 85007; 85025; 86403; 87040; 87449; 93005; 94640; 96365; 96366; 96367; 96372; 99285; G0378; J0456; J0696; J1644; J1815; J7030; J7050; J7626

== ENCOUNTER → 2023-09-29 08:18 | Outpatient (BNVA) | payer OTHER, SELFPAY | PROVIDERS: PCP Family Medicine; Referring Provider Family Medicine; Visit Provider Student in an Organized Health Care Education/Training Program | DX: M75.42 Impingement syndrome of left shoulder (principal); M19.012 Primary osteoarthritis, left shoulder; S43.102A Unspecified dislocation of left acromioclavicular joint, initial encounter; W17.89XA Other fall from one level to another, initial encounter | CPT/HCPCS: 20610; 99204; J3301 ==

== ENCOUNTER 2023-11-10 10:43 | Outpatient (CLI) | payer OTHER, SELFPAY ==
--- NOTE | 2023-11-10 10:52 | MR_ITS ---
WS: [id number] MRI CERVICAL SPINE NONCONTRAST TECHNIQUE: Sagittal T1, T2 and STIR imaging. Axial T2, gradient, and fiesta imaging. CLINICAL INFORMATION: CERVICAL REGION RADICULOPATHY COMPARISON: None. FINDINGS: Straightening of the normal cervical lordosis. Cord signal is normal. Mild spondylitic changes. C2-C3: Spinal canal and foramen are patent. C3-C4: Disc osteophyte complex with central protrusion. Slight contact of the cervical cord. Mild LEF T and no significant RIGHT foraminal narrowing. Mild facet arthropathy. C4-C5: Disc osteophyte complex with endplate ridging. Mild facet arthropathy. Mild central canal sten osis. Mild RIGHT greater than LEFT bony foraminal narrowing. C5-C6: Disc osteophyte complex with mild central canal stenosis with slight indentation of the cervic al cord. Moderate facet arthropathy. Mild LEFT greater than RIGHT bony foraminal narrowing. C6-C7: Disc osteophyte complex with endplate ridging. Mild bilateral bony foraminal narrowing. Modera te facet arthropathy. Uncovertebral joint hypertrophy. C7-T1: Mild LEFT and no significant RIGHT foraminal narrowing. Spinal canal is patent. Visualized brain stem structures: Normal. Prevertebral soft tissues: Normal. Small vessel changes in the te. MR/MR cervical spin wo con* [id number] IMPRESSION: 1. Straightening of the normal cervical lordosis. Cord signal is normal. 2. Mild central canal stenosis C3-C4, C4-C5, and C5-C6. 3. Shallow central protrusion C3-C4 with slight indentation on the cervical co rd. 4. Multilevel mild bony foraminal narrowing worse at bilateral C4-5, LEFT C5-6 , bilateral C6-7 worse on the LEFT, and LEFT C7-T1.
== END 2023-11-10 10:44 | disposition home or self-care (01) ==
LOC: RAD 10:45
PROVIDERS: PCP Family Medicine; Visit Provider General Practice
DX: M99.61 Osseous and subluxation stenosis of intervertebral foramina of cervical region (principal); M25.78 Osteophyte, vertebrae; M47.892 Other spondylosis, cervical region; M53.82 Other specified dorsopathies, cervical region
CPT/HCPCS: 72141

== ENCOUNTER → 2024-03-22 08:46 | Outpatient (BNVA) | payer OTHER, SELFPAY | PROVIDERS: PCP Family Medicine; Visit Provider Student in an Organized Health Care Education/Training Program | DX: M75.42 Impingement syndrome of left shoulder (principal); S43.102A Unspecified dislocation of left acromioclavicular joint, initial encounter; M19.012 Primary osteoarthritis, left shoulder; X58.XXXA Exposure to other specified factors, initial encounter | CPT/HCPCS: 20610; 99213; J3301 ==

== ENCOUNTER → 2024-09-20 09:40 | Outpatient (BNVA) | payer OTHER, SELFPAY | PROVIDERS: PCP Family Medicine; Visit Provider Physician Assistant | DX: M75.42 Impingement syndrome of left shoulder (principal); S43.102A Unspecified dislocation of left acromioclavicular joint, initial encounter; M19.012 Primary osteoarthritis, left shoulder; X58.XXXA Exposure to other specified factors, initial encounter | CPT/HCPCS: 20610; 99213; J3301; J9999 ==